=== PATIENT | male | born 1980 | race Caucasian/White ===

== ENCOUNTER 2021-06-01 08:28 | Emergency (ER) | payer MEDICAID ==
[~2021-06-01] VITALS: Ht 175.3 cm; Wt 99.8 kg
[2021-06-01 08:38] VITALS: BP_SYST 137
[2021-06-01 14:49] VITALS: BP_SYST 131
== END 2021-06-01 14:50 | disposition home or self-care (01) ==
LOC: SED 08:28
DX: S62.305A Unspecified fracture of fourth metacarpal bone, left hand, initial encounter for closed fracture (principal); I10 Essential (primary) hypertension; F12.90 Cannabis use, unspecified, uncomplicated; X58.XXXA Exposure to other specified factors, initial encounter; Y93.89 Activity, other specified; Y92.89 Other specified places as the place of occurrence of the external cause; Y99.8 Other external cause status
CPT/HCPCS: 99283